=== PATIENT | male | born 1980 | race Caucasian/White ===

== ENCOUNTER 2016-08-21 07:35 | Emergency (ER) | payer BC ==
[~2016-08-21] VITALS: Ht 185.4 cm; Wt 95.0 kg
[~2016-08-21 07:35] MED LIST: CIPROFLOXACN500 MG PO; INDOCIN25 MG PO; NORCO1 TA1 PO; PERCOCET 5/325M1 TAB PO; ZITHROMAX250 MG PO
[2016-08-21] MEDS ORDERED: TEMAZEPAM15 MG PO (07:57)
[2016-08-21] MEDS ORDERED: HALDOL1 M1 PO (07:57)
[2016-08-21] MEDS ORDERED: TOBREX OPTH5 ML/BTL OS (08:23)
[2016-08-21 08:30] VITALS: BP 134/82
== END 2016-08-21 08:30 | disposition home or self-care (01) | DRG 125 ==
LOC: ED 07:35
DX: S05.02XA Injury of conjunctiva and corneal abrasion without foreign body, left eye, initial encounter (principal); X58.XXXA Exposure to other specified factors, initial encounter; Y93.89 Activity, other specified

== ENCOUNTER 2018-10-17 12:12 | Emergency (ER) | payer BC ==
[~2018-10-17] VITALS: Ht 185.4 cm; Wt 92.7 kg
[~2018-10-17 12:12] MED LIST changes: +HALDOL1 M1 PO; +TEMAZEPAM15 MG PO; +TOBREX OPTH5 ML/BTL OS
[2018-10-17] MEDS ORDERED: OXCARBAZEPINE300 MG PO (12:21)
[2018-10-17 12:47] VITALS: BP 139/82
[2018-10-17] MEDS ORDERED: CLARITHROMYC500 MG PO (12:50)
== END 2018-10-17 12:56 | disposition home or self-care (01) | DRG 153 ==
LOC: ED 12:12
DX: J02.0 Streptococcal pharyngitis (principal)

== ENCOUNTER 2019-07-17 | Emergency (ER) | payer SELFPAY ==
[~2019-07-17] MED LIST changes: +CLARITHROMYC500 MG PO; +OXCARBAZEPINE300 MG PO
[2019-07-17] MEDS ORDERED: OFLOXACIN0.3 % OD (07:57)
== END 2019-07-17 08:20 | disposition home or self-care (01) | DRG 125 ==
DX: H10.9 Unspecified conjunctivitis (principal); F17.290 Nicotine dependence, other tobacco product, uncomplicated

== ENCOUNTER 2019-08-05 | Emergency (ER) | payer SELFPAY ==
[~2019-08-05] MED LIST changes: +OFLOXACIN0.3 % OD
[2019-08-05] MEDS ORDERED: CLEOCIN300 MG PO (09:17)
== END 2019-08-05 09:29 | disposition home or self-care (01) | DRG 153 ==
DX: J02.0 Streptococcal pharyngitis (principal)

== ENCOUNTER 2019-09-05 | Emergency (ER) | payer SELFPAY ==
[~2019-09-05] MED LIST changes: +CLEOCIN300 MG PO
[2019-09-05 08:50] LABS: IMMATURE GRANULOCYTES 0.2 % (0.0-5.0); MEAN CELL VOLUME 89.2 fL CALC (80.0-100.0); MEAN CORPUSCULAR HGB 30.5 pG CALC (26.0-32.0); MEAN CORPUSCULAR HGB CONC 34.2 g/dL CAL (32.0-36.0); NEUT# 3.42 thou/uL (1.82-7.42); RED BLOOD COUNT 5.54 mill/uL (4.70-6.10); RED CELL DISTRI WIDTH 12.5 % (11.5-15.5); URINE BLOOD DIPSTICK LARGE (NEGATIVE); URINE COLOR YELLOW; URINE GLUCOSE - DIPSTICK NEGATIVE (NEGATIVE); URINE KETONE NEGATIVE (NEGATIVE); URINE LEUK ESTERASE NEGATIVE (NEGATIVE); URINE NITRITE - DIPSTICK NEGATIVE (Negative); URINE PROTEIN - DIPSTICK TRACE mg/dL (NEG-TRACE); URINE SPECIFIC GRAVITY >=1.030
[2019-09-05 08:51] LABS: URINE BILIRUBIN - DIPSTICK SMALL (NEGATIVE)
[2019-09-05 09:02] LABS: HEMATOCRIT 49.4 % (39.0-50.0); HEMOGLOBIN 16.9 g/dl (14.0-18.0)
[2019-09-05 09:18] LABS: ALKALINE PHOSPHATASE 53 u/l (38-126); ANION GAP 13 (6-22 (CALC)); BUN 13 mg/dL (9-20); BUN/CREATININE RATIO 14 (12-20 (CALC)); CARBON DIOXIDE 23 mmol/l (22-30); CHLORIDE 106 mmol/l (95-108); CREATININE 0.9 mg/dL (0.7-1.3); GFR > 60 ML/MIN (>=60 (CALC)); GFR FOR AFR.AMER. > 60 ML/MIN (>=60 (CALC)); LIPASE 48 u/l (23-300); POTASSIUM 4.2 mmol/l (3.5-5.1); SGOT/AST 25 u/l (17-59); SODIUM 138 mmol/l (137-146); TOTAL PROTEIN 7.8 g/dL (6.3-8.2)
[2019-09-05 09:20] LABS: ALBUMIN 4.9 g/dL (3.2-5.0); BILIRUBIN, TOTAL 1.8 mg/dL (0.0-1.4)
[2019-09-05 09:37] LABS: URINE RBC 25-50 RBC/hpf (0-5); URINE SQUAMOUS EPITHELIAL CELL FEW EPI/hpf (0-FEW)
[2019-09-05] MEDS ORDERED: TAMSULOSIN0.4 MG PO (10:02)
[2019-09-05] MEDS ORDERED: ONDANSETRON4 MG PO (10:02)
[2019-09-05] MEDS ORDERED: HYDROCO/APAP1 TA9 PO (10:02)
== END 2019-09-05 10:35 | disposition home or self-care (01) | DRG 694 ==
DX: N13.2 Hydronephrosis with renal and ureteral calculous obstruction (principal)

== ENCOUNTER 2019-10-21 19:39 | Emergency (ER) | payer SELFPAY ==
[~2019-10-21] VITALS: Ht 185.4 cm; Wt 95.4 kg
[~2019-10-21 19:39] MED LIST changes: +HYDROCO/APAP1 TA9 PO; +ONDANSETRON4 MG PO; +TAMSULOSIN0.4 MG PO
[2019-10-21 21:30] VITALS: BP 113/72
== END 2019-10-21 21:32 | DRG 125 ==
LOC: ED 19:39
PROC: 0HQ1XZZ Repair Face Skin, External Approach (ICD-10-PCS; principal; 2019-10-21)
DX: S01.112A Laceration without foreign body of left eyelid and periocular area, initial encounter (principal); F17.290 Nicotine dependence, other tobacco product, uncomplicated; Y04.0XXA Assault by unarmed brawl or fight, initial encounter; Y92.007 Garden or yard of unspecified non-institutional (private) residence as the place of occurrence of the external cause

== ENCOUNTER 2020-08-19 08:21 | Emergency (ER) | payer SELFPAY ==
[2020-08-19 10:14] VITALS: BP 127/73
== END 2020-08-19 10:16 | disposition home or self-care (01) | DRG 125 ==
LOC: ED 08:21
DX: H57.11 Ocular pain, right eye (principal); F31.9 Bipolar disorder, unspecified; F17.200 Nicotine dependence, unspecified, uncomplicated

== ENCOUNTER 2021-01-10 18:54 | Emergency (ER) | payer OTHER ==
[~2021-01-10] VITALS: Ht 185.4 cm; Wt 86.0 kg
[2021-01-10 19:30] VITALS: BP 132/76
== END 2021-01-10 19:36 | disposition left against medical advice (07) | DRG 179 ==
LOC: ED 18:54
DX: U07.1 COVID-19 (principal); F31.9 Bipolar disorder, unspecified; F17.200 Nicotine dependence, unspecified, uncomplicated; Z91.19 Patient's noncompliance with other medical treatment and regimen

== ENCOUNTER 2021-05-18 17:18 | Emergency (ER) | payer SELFPAY ==
[~2021-05-18] VITALS: Ht 185.4 cm; Wt 100.0 kg
[2021-05-18 20:00] VITALS: BP 126/69
== END 2021-05-18 20:05 | disposition home or self-care (01) | DRG 558 ==
LOC: ED 17:18
DX: M77.8 Other enthesopathies, not elsewhere classified (principal); F31.9 Bipolar disorder, unspecified; F17.200 Nicotine dependence, unspecified, uncomplicated